=== PATIENT | male | born 1940 | race Caucasian/White ===

== ENCOUNTER 2018-07-17 05:09 | Emergency (ER) | payer OTHER, MEDICARE ==
[2018-07-17] MEDS ORDERED: NS 1,000 ML IV ONE ×2 (05:16→06:04)
--- NOTE | 2018-07-17 05:20 | EDPHY ---
H & P Time Seen by Provider: 07/17/18 05:18 HPI/ROS: HPI CHIEF COMPLAINT: Nausea vomiting diarrhea. HISTORY OF PRESENT ILLNESS: Very pleasant 77-year-old male presents emergency room by EMS from his private residence for nausea vomiting diarrhea. Patient reports that around 130 in the morning he woke up feeling very nauseous and had multiple episodes of nonbilious nonbloody vomiting. He then was able to go back to sleep and had again a 2nd episode of nausea vomiting and now diarrhea nonbloody. Not black. He states he had multiple episodes of vomiting watery stool. He denies any abdominal pain chest pain or shortness of breath. Denies fever. Patient reports that he watched football game at a friend's house and ate chips and salsa and was vomiting predominately chips and salsa up. Past Medical History: Patient denies any significant medical history Past Surgical History: Ruptured appendix Social History: This denies drugs alcohol tobacco. Family History: Noncontributory ROS REVIEW OF SYSTEMS: 10 Systems were reviewed and negative with the exception of the elements mentioned in the history of present illness. Exam Constitutional nontoxic no acute distress triage nursing summary reviewed, vital signs reviewed, awake/alert. Eyes normal conjunctivae and sclera, EOMI, PERRLA. HENT normal inspection, atraumatic, moist mucus membranes, no epistaxis, neck supple/ no meningismus, no raccoon eyes. Respiratory clear to auscultation bilaterally, normal breath sounds, no respiratory distress, no wheezing. Cardiovascular rate normal, regular rhythm, no murmur, no edema, distal pulses normal. Gastrointestinal soft, non-tender, no rebound, no guarding, normal bowel sounds, no distension, no pulsatile mass. Genitourinary no CVA tenderness. Musculoskeletal no midline vertebral tenderness, full range of motion, no calf swelling, no tenderness of extremities, no meningismus, good pulses, neurovascularly intact. Skin pink, warm, & dry, no rash, skin atraumatic. Neurologic awake, alert and oriented x 3, AAOx3, moves all 4 extremities equally, motor intact, sensory intact, CN II-XII intact, normal cerebellar, normal vision, normal speech. Psychiatric normal mood/affect. Heme/Lymph/Immune no lymphadenopathy. Differential Diagnosis: Differential diagnosis includes but is not limited to and in no particular order: Bowel obstruction, appendicitis, gallbladder disease, diverticulitis, colitis, enteritis, perforated viscus, gastritis, GERD , esophagitis, urinary tract infection, pyelonephritis, kidney stones Medical Decision Making: Plan for this patient IV establishment IV fluid bolus , he received Zofran by EMS prior to arrival he has no further nausea he denies any chest pain or abdominal pain. Check basic blood work, and re-evaluate Re-evaluation: EKG interpretation by me on record in [facility] system. Impression time of EKG 5:23 a.m., sinus rhythm rate of 90 without any acute signs of ischemia no ST elevation no ST depression no significant T-wave abnormalities. No old EKG to compare to. 0639AM: Patient re-evaluated this time he is in the bathroom he had watery yellow diarrhea. No blood. He has not had any vomiting. Stool sample be sent Urinalysis will be set 0735AM: Patient re-evaluated and is doing very well, p.o. Challenge successfully. Has no complaints of feels better after IV fluids. Clinically I believe he has a GI illness most likely viral gastroenteritis given nausea vomiting and diarrhea. Stool studies been sent but is pending. Electrolytes appropriate. Clinically he is well-hydrated he denies any chest pain or shortness of breath denies abdominal pain denies fever is comfortable discharge planning Return precautions discussed return emergency room if worsening abdominal pain, fever, vomiting, diarrhea, bloody stools, not doing well he understands and is agreeable for this. Source: Patient, EMS Constitutional: Initial Vital Signs Temperature (C) 37.3 C 07/17/18 05:11 Heart Rate 107 H 07/17/18 05:11 Respiratory Rate 18 07/17/18 05:11 Blood Pressure 172/83 H 07/17/18 05:11 O2 Sat (%) 91 L 07/17/18 05:11 O2 Delivery Mode Room Air Allergies/Adverse Reactions: No Known Allergies Allergy (Unverified 07/17/18 05:18) Home Medications: Medication Instructions Recorded NK [No Known Home Meds] 07/17/18 Medical Decision Making - Data Points Laboratory Results: Laboratory Results 07/17/18 05:20 07/17/18 05:20 07/17/18 07/17/18 07/17/18 06:45 05:41 05:20 WBC RBC Hgb Hct MCV MCH MCHC RDW Plt Count MPV Neut % (Auto) Lymph % (Auto) Cache % (Auto) Eos % (Auto) Baso % (Auto) Nucleat RBC Rel Count Absolute Neuts (auto) Absolute Lymphs (auto) Absolute Monos (auto) Absolute Eos (auto) Absolute Basos (auto) Absolute Nucleated RBC Immature Gran % Immature Gran # Sodium 138 mEq/L mEq/L (135-145) Potassium 4.0 mEq/L mEq/L (3.5-5.2) Chloride 104 mEq/L mEq/L (97-110) Carbon Dioxide 25 mEq/l mEq/l (22-31) Anion Gap 9 mEq/L mEq/L (6-14) BUN 26 mg/dL H mg/dL (7-23) Creatinine 1.0 mg/dL mg/dL (0.7-1.3) Estimated GFR > 60 Glucose 146 mg/dL H mg/dL (70-100) Calcium 8.7 mg/dL mg/dL (8.5-10.4) Total Bilirubin 1.3 mg/dL mg/dL (0.1-1.4) Conjugated Bilirubin 0.1 mg/dL mg/dL (0.0-0.5) Unconjugated Bilirubin 1.2 mg/dL H mg/dL (0.0-1.1) AST 28 IU/L IU/L (17-59) ALT 26 IU/L IU/L (21-72) Alkaline Phosphatase 64 IU/L IU/L (38-126) POC Troponin I 0.00 ng/mL ng/mL (0.00-0.08) Total Protein 7.2 g/dL g/dL (6.3-8.2) Albumin 4.1 g/dL g/dL (3.5-5.0) Lipase 64 IU/L IU/L (23-300) Urine Color YELLOW Urine Appearance HAZY Urine pH 7.0 (5.0-7.5) Ur Specific [place] 1.021 (1.002-1.030) Urine Protein NEGATIVE (NEGATIVE) Urine Ketones TRACE H (NEGATIVE) Urine Blood NEGATIVE (NEGATIVE) Urine Nitrate NEGATIVE (NEGATIVE) Urine Bilirubin NEGATIVE (NEGATIVE) Urine Urobilinogen NEGATIVE EU EU (0.2-1.0) Ur Leukocyte Esterase NEGATIVE (NEGATIVE) Urine Glucose NEGATIVE (NEGATIVE) 07/17/18 05:20 WBC 15.76 10^3/uL H 10^3/uL (3.80-9.50) RBC 5.58 10^6/uL 10^6/uL (4.40-6.38) Hgb 18.0 g/dL H g/dL (13.7-17.5) Hct 51.7 % H % (40.0-51.0) MCV 92.7 fL fL (81.5-99.8) MCH 32.3 pg pg (27.9-34.1) MCHC 34.8 g/dL g/dL (32.4-36.7) RDW 12.4 % % (11.5-15.2) Plt Count 253 10^3/uL 10^3/uL (150-400) MPV 10.6 fL fL (8.7-11.7) Neut % (Auto) 90.3 % H % (39.3-74.2) Lymph % (Auto) 6.5 % L % (15.0-45.0) Cache % (Auto) 2.7 % L % (4.5-13.0) Eos % (Auto) 0.0 % L % (0.6-7.6) Baso % (Auto) 0.1 % L % (0.3-1.7) Nucleat RBC Rel Count 0.0 % % (0.0-0.2) Absolute Neuts (auto) 14.23 10^3/uL H 10^3/uL (1.70-6.50) Absolute Lymphs (auto) 1.03 10^3/uL 10^3/uL (1.00-3.00) Absolute Monos (auto) 0.42 10^3/uL 10^3/uL (0.30-0.80) Absolute Eos (auto) 0.00 10^3/uL L 10^3/uL (0.03-0.40) Absolute Basos (auto) 0.02 10^3/uL 10^3/uL (0.02-0.10) Absolute Nucleated RBC 0.00 10^3/uL 10^3/uL (0-0.01) Immature Gran % 0.4 % % (0.0-1.1) Immature Gran # 0.06 10^3/uL 10^3/uL (0.00-0.10) Sodium Potassium Chloride Carbon Dioxide Anion Gap BUN Creatinine Estimated GFR Glucose Calcium Total Bilirubin Conjugated Bilirubin Unconjugated Bilirubin AST ALT Alkaline Phosphatase POC Troponin I Total Protein Albumin Lipase Urine Color Urine Appearance Urine pH Ur Specific [place] Urine Protein Urine Ketones Urine Blood Urine Nitrate Urine Bilirubin Urine Urobilinogen Ur Leukocyte Esterase Urine Glucose Medications Given: Discontinued Medications Sodium Chloride (Ns) 1,000 mls @ 0 mls/hr IV EDNOW ONE; Wide Open PRN Reason: Protocol Stop: 07/17/18 05:17 Last Admin: 07/17/18 05:23 Dose: 1,000 mls Sodium Chloride (Ns) 1,000 mls @ 0 mls/hr IV ONCE ONE PRN Reason: Wide Open Stop: 07/17/18 06:05 Last Admin: 07/17/18 06:44 Dose: 1,000 mls Point of Care Test Results: Chemistry 07/17/18 05:41 POC Troponin I 0.00 ng/mL ng/mL (0.00-0.08) Departure - Departure Disposition: Home, Routine, Self-Care Clinical Impression: Vomiting Qualifiers: Vomiting type: unspecified Vomiting Intractability: non-intractable Nausea presence: with nausea Qualified Code(s): R11.2 - Nausea with vomiting, unspecified Diarrhea Qualifiers: Diarrhea type: unspecified type Qualified Code(s): R19.7 - Diarrhea, unspecified Condition: Good Instructions: Dehydration (ED), Acute Nausea and Vomiting (ED), Acute Diarrhea (ED) Additional Instructions: 1. [place] diet over the next 24-48 hours. No spicy fatty greasy foods. 2. Return emergency room if worsening abdominal pain, fever, vomiting. Referrals: NONE *PRIMARY CARE P,. [Primary Care Provider] - As per Instructions
[2018-07-17 05:41] LABS: PLATELET COUNT 253 10^3/uL (150-400)
[2018-07-17 07:30] VITALS: BP 126/67
--- NOTE | 2018-07-17 07:30 | CPEKG ---
Test Reason : OPEN Blood Pressure : / mmHG Vent. Rate : 090 BPM Atrial Rate : 090 BPM P-R Int : 154 ms QRS Dur : 100 ms QT Int : 461 ms P-R-T Axes : 042 021 -43 degrees QTc Int : 564 ms Sinus rhythm Nonspecific repol abnormality, inferior leads Prolonged QT interval Confirmed by Cam Card ([id number]) on 07/17/2018 7:29:55 AM Referred By: Confirmed By:Cam Card
== END 2018-07-17 08:39 | disposition home or self-care (01) ==
LOC: EDUNIT#
DX: R11.2 Nausea with vomiting, unspecified (principal); R19.7 Diarrhea, unspecified; E86.9 Volume depletion, unspecified
CPT/HCPCS: 84484-ER

== ENCOUNTER 2018-07-18 23:39 | Observation (INO) | payer OTHER, MEDICARE ==
--- NOTE | 2018-07-18 23:53 | EDPHY ---
H & P Time Seen by Provider: 07/18/18 23:53 HPI/ROS: HPI CHIEF COMPLAINT: Nausea vomiting diarrhea recently here in the emergency room diagnosed with norovirus. HISTORY OF PRESENT ILLNESS: 77-year-old male, who I in fact saw all yesterday for nausea vomiting diarrhea did well after IV fluids and nausea medicine and went home. GI stool studies shows norovirus. Patient presents back to the emergency room with watery diarrhea generalized weakness and nausea but no vomiting. Patient states he has had numerous diarrheal stools. Denies chest pain or shortness of breath, denies fever. Has nausea but no vomiting. Past Medical History: Denies significant medical history Past Surgical History: Ruptured appendix Social History: Denies drugs alcohol tobacco. Family History: Noncontributory ROS REVIEW OF SYSTEMS: 10 Systems were reviewed and negative with the exception of the elements mentioned in the history of present illness. Exam Constitutional elderly, nontoxic, dry on exam, triage nursing summary reviewed , vital signs reviewed, awake/alert. Vital signs stable afebrile, not tachycardic not hypoxic. Eyes normal conjunctivae and sclera, EOMI, PERRLA. HENT normal inspection, atraumatic, dry mucus membranes, no epistaxis, neck supple/ no meningismus, no raccoon eyes. Respiratory clear to auscultation bilaterally, normal breath sounds, no respiratory distress, no wheezing. Cardiovascular rate normal, regular rhythm, no murmur, no edema, distal pulses normal. Gastrointestinal soft, non-tender, no rebound, no guarding, normal bowel sounds, no distension, no pulsatile mass. Genitourinary no CVA tenderness. Musculoskeletal no midline vertebral tenderness, full range of motion, no calf swelling, no tenderness of extremities, no meningismus, good pulses, neurovascularly intact. Skin pink, warm, & dry, no rash, skin atraumatic. Neurologic awake, alert and oriented x 3, AAOx3, moves all 4 extremities equally, motor intact, sensory intact, CN II-XII intact, normal cerebellar, normal vision, normal speech. Psychiatric normal mood/affect. Heme/Lymph/Immune no lymphadenopathy. Differential Diagnosis: Includes but is not limited to in a particular order norovirus, acute volume depletion, dehydration, electrolyte disturbance, acute diarrhea Medical Decision Making: Plan for this patient IV establishment IV fluid bolus , Zofran as needed for nausea, basic blood work electrolytes. Plan for hospital admission. Re-evaluation: Patient agrees for admission at 1:40 a.m.. Prefer to be admitted due to ongoing diarrhea. Hospitalist service consult Dr. Gaytan Agrees to admit. Source: Patient, EMS - Medical/Surgical History Hx Asthma: No Hx Chronic Respiratory Disease: No Hx Diabetes: No Hx Cardiac Disease: No Hx Renal Disease: No Hx Cirrhosis: No Hx Alcoholism: No Hx HIV/AIDS: No Hx Splenectomy or Spleen Trauma: No Other PMH: APPY, - Social History Smoking Status: Former smoker Constitutional: Initial Vital Signs Temperature (C) 37.0 C 07/18/18 23:48 Heart Rate 78 07/18/18 23:48 Respiratory Rate 20 07/18/18 23:48 Blood Pressure 142/80 H 07/18/18 23:48 O2 Sat (%) 94 07/18/18 23:48 O2 Delivery Mode Room Air Allergies/Adverse Reactions: No Known Allergies Allergy (Unverified 07/18/18 23:47) Home Medications: Medication Instructions Recorded NK [No Known Home Meds] 07/17/18 Medical Decision Making - Data Points Laboratory Results: Laboratory Results 07/18/18 23:43 07/18/18 23:43 07/18/18 07/18/18 07/18/18 23:43 23:43 00:01 WBC 7.14 10^3/uL 10^3/uL (3.80-9.50) RBC 5.15 10^6/uL 10^6/uL (4.40-6.38) Hgb 16.5 g/dL g/dL (13.7-17.5) Hct 48.7 % % (40.0-51.0) MCV 94.6 fL fL (81.5-99.8) MCH 32.0 pg pg (27.9-34.1) MCHC 33.9 g/dL g/dL (32.4-36.7) RDW 12.7 % % (11.5-15.2) Plt Count 236 10^3/uL 10^3/uL (150-400) MPV 10.7 fL fL (8.7-11.7) Neut % (Auto) 57.2 % % (39.3-74.2) Lymph % (Auto) 27.9 % % (15.0-45.0) [place] % (Auto) 13.9 % H % (4.5-13.0) Eos % (Auto) 0.3 % L % (0.6-7.6) Baso % (Auto) 0.3 % % (0.3-1.7) Nucleat RBC Rel Count 0.0 % % (0.0-0.2) Absolute Neuts (auto) 4.09 10^3/uL 10^3/uL (1.70-6.50) Absolute Lymphs (auto) 1.99 10^3/uL 10^3/uL (1.00-3.00) Absolute Monos (auto) 0.99 10^3/uL H 10^3/uL (0.30-0.80) Absolute Eos (auto) 0.02 10^3/uL L 10^3/uL (0.03-0.40) Absolute Basos (auto) 0.02 10^3/uL 10^3/uL (0.02-0.10) Absolute Nucleated RBC 0.00 10^3/uL 10^3/uL (0-0.01) Immature Gran % 0.4 % % (0.0-1.1) Immature Gran # 0.03 10^3/uL 10^3/uL (0.00-0.10) Sodium 138 mEq/L mEq/L (135-145) Potassium 3.7 mEq/L mEq/L (3.5-5.2) Chloride 105 mEq/L mEq/L (97-110) Carbon Dioxide 23 mEq/l mEq/l (22-31) Anion Gap 10 mEq/L mEq/L (6-14) BUN 12 mg/dL mg/dL (7-23) Creatinine 1.0 mg/dL mg/dL (0.7-1.3) Estimated GFR > 60 Glucose 117 mg/dL H mg/dL (70-100) Calcium 9.0 mg/dL mg/dL (8.5-10.4) Total Bilirubin 0.8 mg/dL mg/dL (0.1-1.4) Conjugated Bilirubin 0.3 mg/dL mg/dL (0.0-0.5) Unconjugated Bilirubin 0.5 mg/dL mg/dL (0.0-1.1) AST 37 IU/L IU/L (17-59) ALT 32 IU/L IU/L (21-72) Alkaline Phosphatase 52 IU/L IU/L (38-126) Total Protein 7.4 g/dL g/dL (6.3-8.2) Albumin 4.4 g/dL g/dL (3.5-5.0) Lipase 50 IU/L IU/L (23-300) Ethyl Alcohol < 10 mg/dL mg/dL (0-10) Medications Given: Discontinued Medications Al Hydroxide/Mg Hydroxide (Maalox Susp) 30 ml PO ONCE ONE Stop: 07/19/18 01:06 Last Admin: 07/19/18 01:09 Dose: 30 ml Hyoscyamine Sulfate (Levsin, Hyomax-Sl) 0.25 mg PO ONCE ONE Stop: 07/19/18 01:06 Last Admin: 07/19/18 01:09 Dose: 0.25 mg Sodium Chloride (Ns) 1,000 mls @ 0 mls/hr IV EDNOW ONE; Wide Open PRN Reason: Protocol Stop: 07/18/18 23:55 Last Admin: 07/18/18 23:57 Dose: 1,000 mls Lidocaine (Lidocaine 2% Viscous) 15 ml PO ONCE ONE Stop: 07/19/18 01:06 Last Admin: 07/19/18 01:09 Dose: 15 ml Ondansetron HCl (Zofran) 4 mg IVP EDNOW ONE Stop: 07/19/18 00:02 Last Admin: 07/19/18 00:26 Dose: 4 mg Departure - Departure Disposition: [facility] Clinical Impression: Dehydration, Diarrhea, Vomiting Condition: Fair
[2018-07-18] MEDS ORDERED: NS 1,000 ML IV ONE (23:54)
[2018-07-19] MEDS ORDERED: ONDANSETRON 4 MG/2 ML VIAL IVP ONE (00:01)
[2018-07-19 00:36] LABS: PLATELET COUNT 236 10^3/uL (150-400)
[2018-07-19] MEDS ORDERED: HYOSCYAMINE SULFATE 0.125 MG TAB PO ONE (01:05)
[2018-07-19] MEDS ORDERED: MAG HYDROX/AL HYDROX/SIMETH 30 ML UDCUP PO ONE (01:05)
[2018-07-19] MEDS ORDERED: LIDOCAINE 2% VISCOUS 15 ML UDCUP PO ONE (01:05)
[2018-07-19] MEDS ORDERED: MAG HYDROX/AL HYDROX/SIMETH 30 ML UDCUP ONE (01:06)
[2018-07-19] MEDS ORDERED: ACETAMINOPHEN 325 MG TAB PO PRN (01:17)
[2018-07-19] MEDS ORDERED: ONDANSETRON DISINTEGRATING 4 MG TAB PO PRN (01:17)
[2018-07-19] MEDS ORDERED: PROMETHAZINE HCL 25 MG/ML INJ IVP PRN (01:17)
[2018-07-19] MEDS ORDERED: ONDANSETRON 4 MG/2 ML VIAL IVP PRN (01:17)
[2018-07-19] MEDS ORDERED: NS 1,000 ML IV SCH (01:30)
--- NOTE | 2018-07-19 01:32 | PDGENHP ---
History and Physical - Chief Complaint Vomiting, diarrhea - History of Present Illness 77 yo M w/ minimal PMHx presents with nausea, vomiting, and diarrhea. He was seen in the ED yesterday and a stool PCR was positive for norovirus. He decided to try to get better at home but has had continued diarrhea and inability to tolerate PO. His laboratory work-up in the ED is unremarkable. He is being admitted for observation and rehydration. He has only minimal abdominal pain and denies fever. Case discussed with ED physician Dr. Powell; records reviewed and summarized above. History Information - Allergies/Home Medication List Allergies/Adverse Reactions: No Known Allergies Allergy (Unverified 07/18/18 23:47) Home Medications: NK [No Known Home Meds] 07/17/18 [Last Taken Unknown] I have personally reviewed and updated: family history, medical history - Past Medical History Additional medical history: BPH - Surgical History Reports: appendectomy - Family History Additional family history: Tuberculosis - Social History Smoking Status: Former smoker Review of Systems Review of Systems: ROS: 10pt was reviewed & negative except for what was stated in HPI & below Physical Exam Physical Exam: Temp Pulse Resp BP Pulse Ox 37.0 C 81 18 120/69 92 07/18/18 23:48 07/19/18 00:25 07/19/18 00:25 07/19/18 00:25 07/19/18 00:25 Constitutional: appears nourished, uncomfortable Eyes: PERRL, EOMI Ears, Nose, Mouth, Throat: moist mucous membranes, no oral mucosal ulcers Cardiovascular: regular rate and rhythym, no murmur, rub, or gallop Respiratory: no respiratory distress, clear to auscultation Gastrointestinal: normoactive bowel sounds, tenderness (Mild, diffuse), distension, No guarding, No rebound Skin: warm, normal color Musculoskeletal: full muscle strength, no muscle tenderness Neurologic: AAOx3, CN II-XII Intact Psychiatric: interacting appropriately, not anxious Lab Data & Imaging Review 07/18/18 23:43 07/18/18 23:43 WBC 7.14 10^3/uL (3.80-9.50) 07/18/18 23:43 RBC 5.15 10^6/uL (4.40-6.38) 07/18/18 23:43 Hgb 16.5 g/dL (13.7-17.5) 07/18/18 23:43 Hct 48.7 % (40.0-51.0) 07/18/18 23:43 MCV 94.6 fL (81.5-99.8) 07/18/18 23:43 MCH 32.0 pg (27.9-34.1) 07/18/18 23:43 MCHC 33.9 g/dL (32.4-36.7) 07/18/18 23:43 RDW 12.7 % (11.5-15.2) 07/18/18 23:43 Plt Count 236 10^3/uL (150-400) 07/18/18 23:43 MPV 10.7 fL (8.7-11.7) 07/18/18 23:43 Neut % (Auto) 57.2 % (39.3-74.2) 07/18/18 23:43 Lymph % (Auto) 27.9 % (15.0-45.0) 07/18/18 23:43 [place] % (Auto) 13.9 % (4.5-13.0) H 07/18/18 23:43 Eos % (Auto) 0.3 % (0.6-7.6) L 07/18/18 23:43 Baso % (Auto) 0.3 % (0.3-1.7) 07/18/18 23:43 Nucleat RBC Rel Count 0.0 % (0.0-0.2) 07/18/18 23:43 Absolute Neuts (auto) 4.09 10^3/uL (1.70-6.50) 07/18/18 23:43 Absolute Lymphs (auto) 1.99 10^3/uL (1.00-3.00) 07/18/18 23:43 Absolute Monos (auto) 0.99 10^3/uL (0.30-0.80) H 07/18/18 23:43 Absolute Eos (auto) 0.02 10^3/uL (0.03-0.40) L 07/18/18 23:43 Absolute Basos (auto) 0.02 10^3/uL (0.02-0.10) 07/18/18 23:43 Absolute Nucleated RBC 0.00 10^3/uL (0-0.01) 07/18/18 23:43 Immature Gran % 0.4 % (0.0-1.1) 07/18/18 23:43 Immature Gran # 0.03 10^3/uL (0.00-0.10) 07/18/18 23:43 Sodium 138 mEq/L (135-145) 07/18/18 23:43 Potassium 3.7 mEq/L (3.5-5.2) 07/18/18 23:43 Chloride 105 mEq/L (97-110) 07/18/18 23:43 Carbon Dioxide 23 mEq/l (22-31) 07/18/18 23:43 Anion Gap 10 mEq/L (6-14) 07/18/18 23:43 BUN 12 mg/dL (7-23) 07/18/18 23:43 Creatinine 1.0 mg/dL (0.7-1.3) 07/18/18 23:43 Estimated GFR > 60 07/18/18 23:43 Glucose 117 mg/dL (70-100) H 07/18/18 23:43 Calcium 9.0 mg/dL (8.5-10.4) 07/18/18 23:43 Total Bilirubin 0.8 mg/dL (0.1-1.4) 07/18/18 23:43 Conjugated Bilirubin 0.3 mg/dL (0.0-0.5) 07/18/18 23:43 Unconjugated Bilirubin 0.5 mg/dL (0.0-1.1) 07/18/18 23:43 AST 37 IU/L (17-59) 07/18/18 23:43 ALT 32 IU/L (21-72) 07/18/18 23:43 Alkaline Phosphatase 52 IU/L (38-126) 07/18/18 23:43 Total Protein 7.4 g/dL (6.3-8.2) 07/18/18 23:43 Albumin 4.4 g/dL (3.5-5.0) 07/18/18 23:43 Lipase 50 IU/L (23-300) 07/18/18 23:43 Assessment & Plan Assessment: 77 yo M presents with norovirus infection. Plan: 1. Norovirus infection - Presents with 2 days of nausea, vomiting, and diarrhea. He failed outpatient management and presented again to the ED via EMS with diarrhea and inability to tolerate PO. His abdominal exam and laboratory work-up are reassuring. - Admit for observation - mIVF, anti-emetics PRN - Serial abdominal exams - Contact precautions Diet - Clears, mIVF, ADAT Code - Full Ppx - LMWH Dispo - Admit under observation status
[2018-07-19 06:04] LABS: PLATELET COUNT 193 10^3/uL (150-400)
[2018-07-19] MEDS: ENOXAPARIN 40 MG/0.4 ML SYR SC SCH (08:41)
[2018-07-19] MEDS ORDERED: MELATONIN 3 MG TAB PO PRN (09:13)
--- NOTE | 2018-07-19 12:11 | ASMTCMCOM ---
CM Note CM Note Notes: Spoke w/RN, pt admits to hospital with Norovirus. He lives alone and is otherwise independent. Anticipate he will dc home when medically stable. CM available for any changes. DC Plan: Independent Date Signed: 07/19/2018 12:10 PM Electronically Signed By:Magnolia Ferreira RN
--- NOTE | 2018-07-19 16:39 | GDS ---
DISCHARGE DIAGNOSES: 1. Norovirus gastrointestinal illness. 2. Benign prostatic hypertrophy. 3. Mild abdominal pain. HISTORY OF PRESENT ILLNESS: A 77-year-old male with BPH presented with nausea, vomiting, diarrhea. He was seen in the ER 07/17 with similar symptoms and stool PCR was positive for norovirus. He decid ed he would go home and try to manage his symptoms here. However, his diarrhea persisted and was leela ble to tolerate p.o. No fevers, chills, or sweats. HOSPITAL COURSE BY PROBLEM: 1. Acute norovirus gastrointestinal illness: He is now tolerating clear diet. No nausea, vomiting, or diarrhea now. He was advised to follow a BRAT diet and drink plenty of fluids. His labs are erik ssuring. 2. Acute abdominal pain. Suspect secondary to retching. Again, LFTs, lipase within normal. DISPOSITION: Patient is stable for discharge home. MEDICATIONS: None. DIET: Advance as tolerated. PHYSICAL EXAM: VITAL SIGNS: Temperature 36.6, blood pressure is 122/70, heart rate in the 50s to 60s , respirations 16, 94% on room air. GENERAL: He is tired, but no acute distress. HEENT: PERRLA mo ist. Mildly dry mucous membranes. CV: Regular rate and rhythm. LUNGS: Clear. ABDOMEN: Soft, no ntender, nondistended. Positive bowel sounds. : No Pop. MUSCULOSKELETAL: 5/5 upper lower ext remity strength. NEURO: 2 through 12 intact. PSYCH: Alert and oriented x3. TIME SPENT ON DISCHARGE: Greater than 30 minutes bedside counseling patient on diet, hydration, and followup plan. /[id number]/MODL
[2018-07-20 08:08] VITALS: BP 113/72
[2018-07-20] MEDS: ENOXAPARIN 40 MG/0.4 ML SYR SC SCH (08:12)
[2018-07-20] MEDS ORDERED: PRESERVISION AREDS2 FORMULA EYE VIT 1 EACH PO SCH (09:00)
[2018-07-20] MEDS ORDERED: MULTIVITAMINS 1 EACH TAB PO SCH (09:00)
--- NOTE | 2018-07-20 12:03 | HOSPPROG ---
Hospitalist Progress Note Assessment/Plan: #Norovirus: eating and drinking without issue #Abd pain: resolved #Disp: DC today. See dictation summary dictated 07/20/18 Subjective: eating without issue Objective: Vital Signs Temp Pulse Resp BP Pulse Ox 36.6 C 55 L 16 113/72 92 07/20/18 08:07 07/20/18 08:07 07/20/18 08:07 07/20/18 08:07 07/20/18 08:07 Laboratory Results 07/19/18 05:17 07/19/18 05:17 07/19/18 07/20/18 07/21/18 05:59 05:59 05:59 Intake Total 1050 Output Total 700 375 Balance 350 -375 - Physical Exam Constitutional: no apparent distress Eyes: PERRL Ears, Nose, Mouth, Throat: moist mucous membranes Cardiovascular: regular rate and rhythym Respiratory: no respiratory distress Gastrointestinal: normoactive bowel sounds Genitourinary: no bladder fullness Skin: warm Musculoskeletal: full muscle strength Neurologic: AAOx3 Psychiatric: interacting appropriately ICD10 Worksheet Patient Problems: Problems Problem Status Onset Dehydration Acute Diarrhea Acute Vomiting Acute
--- NOTE | 2018-07-20 12:16 | GDS ---
DISCHARGE DIAGNOSES: Norovirus gastrointestinal illness, benign prostatic hypertrophy, mild abdomina l pain. HISTORY OF PRESENT ILLNESS: Please see discharge summary dated 07/19/2018 for full details. He stay ed overnight because was not able to obtain a ride home or provide assistance to buy liquids at home. Otherwise, would have been at risk for recurrent rehydration. He is now eating a regular diet with out issue. /[id number]/MODL
== END 2018-07-20 12:22 | disposition home or self-care (01) ==
LOC: EDUNIT# → F3E 07-19 03:29
PROVIDERS: ADMIT Student in an Organized Health Care Education/Training Program; ATTEND Internal Medicine
DX: A08.11 Acute gastroenteropathy due to Norwalk agent (principal); N40.0 Benign prostatic hyperplasia without lower urinary tract symptoms; R10.9 Unspecified abdominal pain; R19.7 Diarrhea, unspecified; R11.2 Nausea with vomiting, unspecified
CPT/HCPCS: 96361; 96374; 99285; G0378; J1650; J2405; G0480